=== PATIENT | male | born 1985 | race African-American/Black ===

== ENCOUNTER 2020-02-17 15:30 | Emergency (ER) | payer MEDICAID ==
[~2020-02-17] VITALS: Ht 170.2 cm; Wt 68.2 kg
[2020-02-17] MEDS ORDERED: ALPR1TAB7 PO (18:05)
[2020-02-17] MEDS ORDERED: CHOL100018 PO (18:05)
[2020-02-17 18:18] VITALS: BP 120/92
== END 2020-02-17 18:40 | disposition home or self-care (01) ==
LOC: EMS 15:33
DX: R25.1 Tremor, unspecified (principal); Z76.5 Malingerer [conscious simulation]